=== PATIENT | male | born 1945 | race Caucasian/White ===

== ENCOUNTER 2020-06-30 08:48 | Inpatient (IN) | payer OTHER, MEDICARE ==
[~2020-06-30] VITALS: Ht 172.7 cm; Wt 98.9 kg
[~2020-06-30 08:48] MED LIST: BAYER CHEWABLE81 MG PO; CELEXA 10 MG TA10 M1 PO; COLACE100 MG PO; CRESTOR10 MG PO; FLOMAX0.4 MG PO; GLUCOTROL5 MG PO; HYDROCODONE-AP1 EAC6 PO; MELATONIN1 MG PO; MELOXICAM7.5 MG PO; METFORMIN HCL500 MG PO; MILK OF MA2400 MG/10 PO; MOVIPREP POWDE1 EACH PO; PACERONE 200 M200 M1 PO; PHENASEPTIC1 BOT MUCOUS MEM; TENORMIN50 MG PO; TYLENOL325 MG PO
[2020-06-30 09:08] VITALS: BP 145/60
[2020-06-30] MEDS ORDERED: LIPITOR80 MG PO (09:18)
[2020-06-30 10:06] LABS: ABSOLUTE NEUTROPHILS 5.5 thou/uL (1.4-8.2); BASOPHILS 0.8 % (0.0-2.0); EOSINOPHILS 3.8 % (0.0-3.0); HEMATOCRIT 38.9 % (42.0-52.0); HEMOGLOBIN 13.2 gm/dL (14.0-18.0); MCV 96.9 fL (80.0-100.0); MONOCYTES 12.4 % (1.0-8.0); PLATELET COUNT 93 thou/uL (150-400); RBC 4.02 mil/uL (4.50-6.00); RDW 13.8 % (10.5-14.5); WBC 8.5 thou/uL (4.0-11.0)
[2020-06-30 10:16] LABS: ANION GAP 6 mmol/L (7-16); BUN 12 mg/dL (7-18); CALCIUM 8.9 mg/dL (8.5-10.1); CHLORIDE 107 mmol/L (98-107); CO2 28 mmol/L (21-32); CREATININE 1.1 mg/dL (0.7-1.3); GLUCOSE 139 mg/dL (74-106); POTASSIUM 4.3 mmol/L (3.5-5.1); SODIUM 141 mmol/L (136-145)
[2020-06-30 10:26] LABS: ALBUMIN 3.4 g/dL (3.4-5.0); SGOT 15 U/L (15-37); SGPT 28 U/L (16-63); TOTAL BILIRUBIN 1.2 mg/dL (0.2-1.0); TOTAL PROTEIN 6.2 g/dL (6.4-8.2); TROPONIN-I <0.06 ng/mL (<0.06)
--- NOTE | 2020-06-30 10:45 | EKG ---
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
[2020-06-30 16:08] VITALS: BP 130/62
[2020-06-30 16:23] VITALS: BP 122/58
[2020-06-30 17:53] VITALS: BP 146/96
--- NOTE | 2020-06-30 18:36 | NUR ---
PATIENT ARRIVED TO UNIT AT APPROX 1745. ORIENTED TO ROOM, PROVIDED CALL LIGHT AND EDUCATION ON USING TV REMOTE/ASKING FOR HELP. VS STABLE. C/O PAIN ON L KNEE WHEN PRESSURE PUT ON IT. FALL PRECAUTIONS IN PLACE. WILL ENDORSE TO NOC. ELIANA.
[2020-06-30 19:46] VITALS: BP 143/54
--- NOTE | 2020-07-01 03:15 | NUR ---
ASSUMED CARE OF PT AT 1900. PT IS A/O X4 AND IS UP WITH ASSISTANCE USING A WALKER AND GB. ROOM AIR. VSS. AFEBRILE. C/O PAIN TO LEFT KNEE. PRN PAIN MEDICATION GIVEN DIRECTED. IMMOBILIZER IN PLACE TO LEFT KNEE AND ICE PACK PROVIDED. LEFT LEG ELEVATED ON PILLOW. PT USES URINAL AT THE BEDSIDE WITH ASSISTANCE. NO BM THIS SHIFT. NO SKIN ISSUES. FALL PRECAUTIONS IN PLACE, CALL LIGHT IS WITHIN REACH. CALLS OUT APPROPRIATELY. NOTIFIED PHYSICAN THAT MED REQ HAD NOT YET BEEN IMPLEMENTED. ORDERS GIVEN TO START HOME MEDICATIONS WELL PRN PAIN MEDICATION. WILL CONTINUE TO [facility].
[2020-07-01 06:09] LABS: CHOLESTEROL 113 mg/dL (<200); HDL CHOLESTEROL 49 mg/dL (>40); LDL CHOLESTEROL 47 mg/dL (<100); SERUM ASSESSMENT Clear; TC:HDL 2.3 Ratio (Not establshd); TRIGLYCERIDE 86 mg/dL (<150); VLDL 17 mg/dL (<40)
[2020-07-01 07:15] VITALS: BP 137/67
--- NOTE | 2020-07-01 10:53 | 2DMMODE ---
[facility] [address] [place] [address] 2 D/M-MODE ECHOCARDIOGRAM Name: LUCINDA HOFFMAN Room #: 460-P ADM IN M.R.#: [id number] Admission: 06/30/20 Attend Phys: Michel Quintana, Discharge: Date of : 43 Report #: [id number] THIS REPORT FOR: cc: FAM - Family physician unknown FAM - Family physician unknown Bretn Parada MD [facility] ~ APPROVED REPORT Study performed: 07/01/2020 09:09:21 EXAM: Comprehensive 2D, Doppler, and color-flow Echocardiogram Patient Location: Bedside Room #: 460 Status: on-call BSA: 2.12 HR: 66 bpm BP: 137/67 mmHg Rhythm: NSR Other Information Study Quality: Adequate Indications Diabetes CAD Chest Pain Hypertension/HDD CABG x5 in 2015, HLD 2D Dimensions RVDd: 33.37 mm IVSd: 11.76 (7-11mm) LVOT Diam: 23.06 (18-24mm) LVDd: 46.70 mm PWd: 12.29 (7-11mm) Ascending Ao: 33.90 (22-36mm) LVDs: 32.93 (25-40mm) Aortic Root: 33.21 mm Volumes Left Atrial Volume (Systole) Single Plane 4CH: 75.29 mL Single Plane 2CH: 74.47 mL LA ESV Index: 37.00 mL/m2 Aortic Valve AoV Peak Jensen.: 1.79 m/s [facility] [address] [place] [address] 2 D/M-MODE ECHOCARDIOGRAM Name: LUCINDA HOFFMAN Room #: 460-P [facility] IN M.R.#: [id number] Admission: 06/30/20 Attend Phys: Michel Peñaloza Discharge: Date of : 43 Report #: [id number] AO Peak Gr.: 12.78 mmHg LVOT Max P.86 mmHg LVOT Max V: 1.21 m/s JUICE Vmax: 2.83 cm2 Mitral Valve E/A Ratio: 0.8 MV Decel. Time: 320.49 ms MV E Max Jensen.: 0.69 m/s MV A Jensen.: 0.82 m/s MV PHT: 92.94 ms IVRT: 79.58 ms Pulmonary Valve PV Peak Jensen.: 1.29 m/s PV Peak Gr.: 6.69 mmHg Pulmonary Vein P Vein S: 0.64 m/s P Vein A: 0.27 m/s P Vein D: 0.49 m/s P Vein A Dur.: 121.1 msec P Vein S/D Ratio: 1.31 Tricuspid Valve TR Peak Jensen.: 2.68 m/s RAP Estimate: 5.00 mmHg TR Peak Gr.: 28.76 mmHg PA Pressure: 34.00 mmHg Left Ventricle The left ventricle is normal size. There is normal LV segmental wall motion. Mild concentric left ventricular hypertrophy. The left ventricular systolic function is normal. The left ventricular ejection fraction is within the normal range. LVEF is 55-60%. Mild diastolic dysfunction Right Ventricle The right ventricle is normal size. The right ventricular systolic function is normal. Atria Left atrium is mildly dilated. The right atrium size is normal. Aortic Valve Mild aortic valve sclerosis, trileaflet. No aortic regurgitation is present. There is no aortic valvular stenosis. Mitral Valve The mitral valve is normal in structure. There is no mitral valve [facility] [place] [address] 2 D/M-MODE ECHOCARDIOGRAM Name: LUCINDA HOFFMAN Room #: 460-P ADM IN M.R.#: [id number] Admission: 06/30/20 Attend Phys: Michel Peñaloza Discharge: Date of : 43 Report #: [id number] regurgitation noted. No evidence of mitral valve stenosis. Tricuspid Valve The tricuspid valve is normal in structure. Mild tricuspid regurgitation. PAP is estimated at 34 mmHg. Pulmonic Valve The pulmonary valve is normal in structure. Trace pulmonic regurgitation. Great Vessels The aortic root is normal in size. IVC is normal in size and collapses >50% with inspiration. Pericardium There is no pericardial effusion. <Conclusion> The left ventricular systolic function is normal. There is normal LV segmental wall motion. LVEF is 55-60%. Mild diastolic dysfunction Mild aortic valve sclerosis, trileaflet. No aortic regurgitation or stenosis. The mitral valve is normal in structure. No mitral valve regurgitation. Mild tricuspid regurgitation. Pulmonary artery pressure estimated at 34 mmHg. There is no pericardial effusion. <ELECTRONICALLY SIGNED> By: Brent Parada MD, [facility] 07/01/20 1053 [id number] 1053 Brent Parada MD, FAC /INF
--- NOTE | 2020-07-01 11:16 | EKG ---
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 : 1945 Requested By: Brent Parada Order Number: [id number] MD: Brent Parada Measurements Intervals [place] Rate: 66 P: 38 AR: 188 QRS: -2 QRSD: 82 T: 61 QT: 406 QTc: 426 Interpretive Statements Sinus rhythm Abnormal R-wave progression, early transition Compared to ECG 06/30/2020 09:44:20 No significant changes Electronically Signed On 07-01-2020 11:16:39 CDT by Brent Parada [email or web address] <ELECTRONICALLY SIGNED> By: Brent Parada MD, [facility] 07/01/20 1116 6 6 Brent Parada MD, [facility] /EPI
[2020-07-01 11:42] LABS: URINE BILIRUBIN NEGATIVE (Negative); URINE BLOOD NEGATIVE (Negative); URINE CLARITY CLEAR; URINE COLOR YELLOW; URINE GLUCOSE-RANDOM* NEGATIVE (Negative); URINE KETONES NEGATIVE (Negative); URINE LEUKOCYTES NEGATIVE (Negative); URINE NITRITE NEGATIVE (Negative); URINE PROTEIN (DIPSTICK) NEGATIVE (Negative); URINE SPECIFIC GRAVITY 1.025 (1.005-1.035)
--- NOTE | 2020-07-01 11:55 | NUR ---
Received awake on bed. Due medications given as prescribed, able to swallow meds w/o difficulty. On telemetry; no complains and signs of chest pain, crushing sensation and heaviness. Assisted in ADLs. On room air. Vital signs stable. On carb controlled diet- tolerating well; no nausea, no vomiting and no abdominal pain. Continent of bowel and bladder, using urinal- output measured and recorded accordingly. With SL at L AC- intact. With L knee immobilizer in place- ice packs placed on affected area. Falls bundle in place. Complained of pain, due PRN pain meds given as prescribed. Pt seen and examined by Dr Poole- to do straight cath- for urinalysis and urine CS- specimen collected and sent to lab. Pt seen and examined by Dr Quintana this AM- informed him re: med rec and that pt requesting for additional oral pain meds since IV pain meds just gives short pain relief- still a/w orders. KUB xray ordered by Dr Poole- done at bedside. To continue monitoring patient.
[2020-07-01 15:34] VITALS: BP 126/54
[2020-07-01 19:57] VITALS: BP 127/67
[2020-07-02 03:05] LABS: GLYCOHEMOGLOBIN (HGB A1C) 6.3 % (4.8-5.6)
--- NOTE | 2020-07-02 04:29 | NUR ---
Assumed pt care at 1900. A/OX4,VSS. Up with assist of one, pt supposed to wear the immobilizer when ambulating. C/o pain to left knee,slightly swollen;medicated per EMAR with some relief reported;ice pack provided as well. Continent of B&B. SR on telemetry. Fall precautions in place,reminded to call before getting up. Call light/personal items placed within reach.
[2020-07-02 07:38] VITALS: BP 134/76
[2020-07-02 12:27] LABS: ABSOLUTE NEUTROPHILS 4.5 thou/uL (1.4-8.2); BASOPHILS 0.6 % (0.0-2.0); EOSINOPHILS 5.5 % (0.0-3.0); HEMATOCRIT 38.6 % (42.0-52.0); HEMOGLOBIN 13.1 gm/dL (14.0-18.0); LYMPHOCYTES 20.2 % (24.0-44.0); MCH 32.9 pg (26.0-34.0); MCHC 33.9 g/dL (28.0-37.0); MCV 96.8 fL (80.0-100.0); MONOCYTES 16.1 % (1.0-8.0); PLATELET COUNT 122 thou/uL (150-400); POLYS 57.6 % (36.0-66.0); RBC 3.98 mil/uL (4.50-6.00); RDW 13.9 % (10.5-14.5); WBC 7.8 thou/uL (4.0-11.0)
[2020-07-02 12:40] LABS: ALBUMIN 3.1 g/dL (3.4-5.0); CALCIUM 8.5 mg/dL (8.5-10.1); CREATININE 1.1 mg/dL (0.7-1.3); MAGNESIUM 1.9 mg/dL (1.8-2.4); POTASSIUM 4.2 mmol/L (3.5-5.1); TOTAL BILIRUBIN 1.1 mg/dL (0.2-1.0); TOTAL PROTEIN 6.2 g/dL (6.4-8.2)
--- NOTE | 2020-07-02 13:54 | NUR ---
ASSUMED PT CARE THIS AM. PT IS ALERT & ORIENTED X4. REMOVED IV ON L AC PER PT REQUEST. PLACED R AC IV SITE. PT C/O OF PAIN AND GIVEN PAIN MEDICATION. PT HAD CT SCAN AND US DURING SHIFT. PT USES IMMOBILIZER ON THE KNEE WHEN GETTING UP. PT IS ACCUCHECK ACHS AND WELL TOLERATED BG. PT HAS ICE PACK. PT SON AT THE BEDSIDE. PT ON THE BED WATCHING TV, BED ON THE LOWEST POSITION, SIDE RAILS UP, CALL LIGHT WITHIN REACH. WILL CONTINUE TO MONITOR PT. FOLLOW POC.
[2020-07-02 16:16] VITALS: BP 145/63
[2020-07-02 20:04] VITALS: BP 145/68
--- NOTE | 2020-07-03 01:21 | NUR ---
ASSUMED CARE OF PT AT SHIFT CHANGE. PT IS AOX3-4 AND LETS NEEDS BE KNOWN. FALL PRECAUTION IN PLACE. PT REPORTS THAT L KNEE PAIN IS MUCH IMPROVED AFTER STEROIND/LIDOCANE INJECTION. PT DENEIED NAUSEA OR SOA. PT RUNS NSR ON TELE. ASSESSMENT CHARTED. PT WAS ABLE TO GET COMFORTABLE AND SLEEP PART OF THE SHIFT. VSS AND NO S/S OF ACUTE DISTRESS. WILL CONTINUE TO MONITOR FOR CHANGES.
[2020-07-03 07:45] VITALS: BP 148/66
--- NOTE | 2020-07-03 10:24 | NUR ---
ASSUMED PT CARE THIS AM. PT VSS, A&OX4. PATIENT HAS NO COMPLAINTS OF PAIN, NUMBNESS, TINGLING, OR NUMBNESS. IV PATENT, SALINE LOCKED. PATIENT IS UP WITH ASSIST, WALKING AROUND UNIT WITH STAFF TODAY, WEARING A LEFT KNEE BRACE WHEN AMBULATING. PATIENT REMAINS CONTINENT, USING A URINAL. ON ROOM AIR. PATIENT REMAINS ON TELEMETRY. TAKES MEDS WITHOUT ISSUE. FALL PRECAUTIONS IN PLACE, CALL LIGHT WITHIN REACH.
[2020-07-03] MEDS ORDERED: METFORMIN HCL500 M3 PO (11:56)
--- NOTE | 2020-07-03 13:55 | NUR ---
PT ADMITTED RELATED TO FALL, L KNEE PAIN, WEAKNESS. CM REVIEWED CHART AND SPOKE WITH CARE TEAM. CM MET WITH PT AND SON JENY AT BEDSIDE THIS DAY. PT APPEARED TO BE A&O X4. CM ROLE INTRODUCED. 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 HER HOUSE HAS 5 STEPS TO ENTER AND NONE PT NEEDS TO USE INSIDE. 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 PT INDICATED NO DM BUT THAT HIS SISTER HAS SOME. PT INDICATED HIS PCP IS DR. MATSON IN [facility]. ORTHO CONSULTED AND PT GOT SHOT. PT INDICATED PT MAY NEED A FWW FOR USE UPON DC. CM FOLLOWING REGARDING DC PLANNING.
[2020-07-03 15:14] VITALS: BP 151/76
[2020-07-03 15:30] VITALS: BP 151/76
== END 2020-07-03 17:04 | disposition home or self-care (01) | DRG 914 ==
LOC: ER 08:48 → EROBS 12:33 → 4W 12:33
PROVIDERS: Emergency Medicine; Internal Medicine; Nurse Practitioner; ADMIT Surgery; ATTEND Surgery
PROC: 2W3MX3Z Immobilization of Left Lower Extremity using Brace (ICD-10-PCS; principal; 2020-07-01)
DX: S89.92XA Unspecified injury of left lower leg, initial encounter (principal); R07.9 Chest pain, unspecified; S20.212A Contusion of left front wall of thorax, initial encounter; M25.462 Effusion, left knee; I10 Essential (primary) hypertension; E78.5 Hyperlipidemia, unspecified; E11.9 Type 2 diabetes mellitus without complications; N40.0 Benign prostatic hyperplasia without lower urinary tract symptoms; F32.9 Major depressive disorder, single episode, unspecified; I25.10 Atherosclerotic heart disease of native coronary artery without angina pectoris; F41.9 Anxiety disorder, unspecified; D69.6 Thrombocytopenia, unspecified; M48.02 Spinal stenosis, cervical region; J32.2 Chronic ethmoidal sinusitis; I25.9 Chronic ischemic heart disease, unspecified; K59.00 Constipation, unspecified; D64.9 Anemia, unspecified; W18.39XA Other fall on same level, initial encounter; Z20.822 Contact with and (suspected) exposure to COVID-19; Z90.49 Acquired absence of other specified parts of digestive tract; Z98.42 Cataract extraction status, left eye; Z98.41 Cataract extraction status, right eye; Z79.82 Long term (current) use of aspirin; Z79.899 Other long term (current) drug therapy; Z88.8 Allergy status to other drugs, medicaments and biological substances; Z95.1 Presence of aortocoronary bypass graft; Y93.89 Activity, other specified; Y92.89 Other specified places as the place of occurrence of the external cause; Y99.8 Other external cause status
CPT/HCPCS: 10045